=== PATIENT | male | born 1945 | race Caucasian/White ===

== ENCOUNTER 2017-06-03 11:23 | Outpatient (CLI) | payer MEDICARE ==
--- NOTE | 2017-06-03 14:40 | SJPRAD ---
CHEST TWO VIEWS: History: Cough. Comparison: None. FINDINGS: Lungs are clear. No pneumothorax or effusion. Cardiac silhouette and mediastinal contours are within normal limits. There is a nodular density in the right upper lobe between the posterior third and fourth ribs. This measures approximately 11 mm. IMPRESSION: 1. No acute intrathoracic abnormality. 2. 11 mm nodular density projecting over the right upper lobe projecting between the posterior 3rd an d 4th ribs. Non-emergent follow up CT may be beneficial. POS: [facility]
== END 2017-06-03 11:24 | disposition home or self-care (01) ==
LOC: MWLC RAD 11:23
PROVIDERS: ATTEND Family Medicine
DX: R05 Cough (principal)

== ENCOUNTER 2017-06-27 07:13 | Outpatient (CLI) | payer MEDICARE ==
--- NOTE | 2017-06-27 08:49 | CT ---
CT CHEST WITH CONTRAST: Technique: Multiple axial tomograms were obtained through the chest with IV enhancement. History: Exam was performed in follow up to chest x-ray 06-03-17 which questioned a nodule in the rig ht upper lobe. FINDINGS: There is mild bilateral apical pleural thickening. There is a nodular component to the right apical t hickening measuring approximately 1.0 cm in the coronal plane. This does not correspond to the questi onable nodule seen on chest x-ray. There is also a nodular component to the apical pleural thickening on the left also measuring up to 1 .0 cm. This area of nodular thickening in the left apex has a central calcification present. No other evidence of lung mass or nodule. There is no nodule in the right upper lobe that would corre spond to the questioned chest x-ray finding. There is some mild pleural thickening in this lateral re gion of the right upper lobe which probably corresponds to the density seen on chest x-ray. Mediastinum is unremarkable. Images through the upper abdomen are unremarkable. Splenic calcification s are seen indicating a prior granulomatous process. IMPRESSION: 1. There is bilateral apical pleural thickening with some nodular densities associated with the bilat eral apical pleural thickening as described above. Recommend repeat noncontrast CT scan chest in 6 mo nths to confirm stability of the nodular apical densities. 2. CT chest is otherwise unremarkable. No right upper lobe nodule is seen that would correspond to th e questioned finding on chest x-ray. The chest x-ray finding appears to relate to a focal area of ple ural thickening in the peripheral right upper lobe. POS: [facility]
[2017-06-27] MEDS ORDERED: Iopamidol 370 76% 100 ML VIAL ONE (14:01)
== END 2017-06-27 07:14 | disposition home or self-care (01) ==
LOC: CT 07:13
PROVIDERS: ATTEND Internal Medicine Geriatric Medicine
DX: R91.1 Solitary pulmonary nodule (principal); J94.8 Other specified pleural conditions
CPT/HCPCS: 71260

== ENCOUNTER 2017-12-17 13:32 | Outpatient (CLI) | payer MEDICARE | END 2017-12-17 13:33 | disposition home or self-care (01) | LOC: BICCT 13:32 | PROVIDERS: ATTEND Internal Medicine Geriatric Medicine | DX: R91.8 Other nonspecific abnormal finding of lung field (principal) | CPT/HCPCS: 71250 ==

== ENCOUNTER 2018-01-21 19:47 | Emergency (ER) | payer MEDICARE ==
[2018-01-21 20:42] LABS: #Basophils 0.1 thou/uL (0.0-0.2); #Eosinphils 0.4 thou/uL (0.0-0.7); #Lymphocytes 2.3 thou/uL (1.20-3.40); #Monocytes 0.7 thou/uL (0.11-0.59); #Neutrophils 3.8 thou/uL (1.40-6.50); %Eosinophils 5.4 % (0.0-10.0); %Monocytes 9.8 % (0.0-10.0); %Neutrophils 51.8 % (42.0-75.0); Hemoglobin 14.2 g/dL (14.0-18.0); Mean Corpuscular HGB CONC 33.7 g/dL (32.0-36.0); Mean Corpuscular Volume 91.8 fL (78.0-98.0); Mean Platelet Volume 7.1 fL (7.4-10.4); Platelet Count 194 thou/uL (130-400); Red Blood Cell (RBC) Count 4.59 mill/uL (4.70-6.10); White Blood Cell (WBC) Count 7.3 thou/uL (4.8-10.8)
[2018-01-21] MEDS ORDERED: Acetaminophen 500 MG TAB ONE (21:00)
[2018-01-21 21:02] LABS: ALT (SGPT) 16 U/L (8-55); AST (SGOT) 19 U/L (5-34); Albumin 4.5 g/dL (3.4-4.8); Alkaline Phosphatase 71 U/L (40-150); Anion Gap 13 mmol/L (10-20); BUN (Urea Nitrogen) 18 mg/dL (8.4-25.7); Bilirubin, Total 0.3 mg/dL (0.2-1.2); Calc. Creatinine Clearance 0 mL/min (70-130); Calcium 10.1 mg/dL (7.8-10.44); Carbon Dioxide 28 mmol/L (23-31); Chloride 105 mmol/L (98-107); Estimated GFR-MDRD 80; Globulin 2.6 g/dL (2.4-3.5); Glucose 96 mg/dL (83-110); Protein, Total 7.1 g/dL (5.8-8.1); Sodium 141 mmol/L (136-145)
[2018-01-21 21:05] LABS: Bilirubin Negative (Negative); Blood, Urine Negative (Negative); Clarity CLEAR (Clear); Glucose, Urine (Dipstick) Negative (Negative); Leukocyte Negative (Negative); Nitrite Negative (Negative); Protein, Urine (Dipstick) Negative (Neg-Trace); Specific Gravity, Urine 1.005 (1.002-1.036); Urobilinogen 0.2 mg/dL (0.2-1.0)
[2018-01-21 21:06] LABS: CKMB 3.9 ng/mL (0-6.6); Troponin I Less than 0.010 ng/mL (< 0.028)
--- NOTE | 2018-01-21 21:06 | RAD ---
PA AND LATERAL OF THE CHEST: 01/21/18 INDICATION: Headache with elevated blood pressure. COMPARISON: Prior PA and lateral of the chest dated 06/03/17. IMPRESSION: No acute cardiopulmonary abnormalities evident. The examination does not appear appreciably changed f rom this comparison exam. Previously seen nodular density in the region of the right upper lobe may r eflect superimposed vascular markings. No suspicious abnormality is seen within this region on this c urrent exam. POS: [facility]
== END 2018-01-22 00:05 | disposition home or self-care (01) ==
LOC: ERS 19:47
DX: I10 Essential (primary) hypertension (principal); I25.10 Atherosclerotic heart disease of native coronary artery without angina pectoris; E78.5 Hyperlipidemia, unspecified; Z79.899 Other long term (current) drug therapy; Z79.82 Long term (current) use of aspirin
CPT/HCPCS: 36415; 71046; 80053; 81003; 82553; 84484; 85025; 93005

== ENCOUNTER 2019-01-05 07:25 | Outpatient (CLI) | payer MEDICARE ==
--- NOTE | 2019-01-05 09:10 | MRI ---
EXAM: Right shoulder MRI without contrast: HISTORY: Right shoulder pain for months COMPARISON: None FINDINGS: Multiplanar, multisequence MRI examination of the shoulder is performed. A C joint:Severe AC joint arthrosis with downsloping of the anterior and lateral acromium and promine nt subchondral cystic changes with fluid within the subacromial and subdeltoid bursa. Supraspinatus tendon: Attenuated tendon with complete full-thickness tear with retraction back to gomez r the level of the humeral dome. Infraspinatus tendon: Undersurface and partial-thickness delaminating tear Biceps tendon: Intact. Subscapularis tendon: Undersurface and minimally delaminating tear. Rotator cuff muscles: Very mild muscle volume loss of the supraspinatus muscle. Intramuscular lipoma in the caudal portion of the subscapularis muscle. Glenoid labrum: Irregular blunted superior labrum evidence for degenerative fraying/tears. No evidence for acute osteochondral defect or significant abnormal marrow signal. IMPRESSION: Multiple rotator cuff tears. A C joint arthrosis. Degenerated appearing labrum.
== END 2019-01-05 07:26 | disposition home or self-care (01) ==
LOC: SCSMRI 07:25
PROVIDERS: ATTEND Orthopaedic Surgery
DX: S46.911A Strain of unspecified muscle, fascia and tendon at shoulder and upper arm level, right arm, initial encounter (principal); M75.121 Complete rotator cuff tear or rupture of right shoulder, not specified as traumatic; M19.011 Primary osteoarthritis, right shoulder

== ENCOUNTER 2019-06-25 08:00 | Outpatient (CLI) | payer MEDICARE ==
--- NOTE | 2019-06-25 09:46 | CT ---
CT THORAX WITH CONTRAST: DATE: 06/25/19 HISTORY: 74-year-old male follow-up pulmonary nodule. COMPARISON: 06/27/17 CT. TECHNIQUE: IV iodinated contrast media: 100 mL [id number]. FINDINGS: Very mild biapical pleural based chronic pulmonary changes. No suspicious pulmonary nodule. Tiny nonc alcified pulmonary nodule at right minor fissure is unchanged, and is consistent with pulmonary lymph node. No consolidation, pulmonary edema, pleural effusion, or pneumothorax. Ectasia of ascending tho racic aorta. No cardiomegaly or pericardial effusion. No mediastinal lymphadenopathy. Trachea and alfonso ateral mainstem bronchi are patent and clear. No destructive osseous lesion. No interval change overa ll. IMPRESSION: 1. No suspicious pulmonary nodule. 2. Ectasia of ascending thoracic aorta. 3. No evidence of active disease. JOYCE Diaz POS: [facility]
== END 2019-06-25 08:01 | disposition home or self-care (01) ==
LOC: CT 08:00
PROVIDERS: ATTEND Internal Medicine Critical Care Medicine
DX: R91.1 Solitary pulmonary nodule (principal); I77.810 Thoracic aortic ectasia
CPT/HCPCS: 71260; 82565